=== PATIENT | female | born 1960 | race Caucasian/White ===

== ENCOUNTER 2018-09-30 09:20 | Day surgery (SDC) | payer OTHER ==
[2018-09-30] MEDS ORDERED: PROPOFOL 20 ML (11:07)
[2018-09-30] MEDS ORDERED: LIDOCAINE 2% (SDV) 5 ML INJ (11:07)
[2018-09-30] MEDS ORDERED: FENTAnyl 50 MCG/ML VIAL (11:07)
[2018-09-30] MEDS ORDERED: MIDAZOLAM 1 MG/ML 2 ML INJ (11:07)
[2018-09-30] MEDS ORDERED: PROPOFOL 40 ML (11:42)
== END 2018-09-30 13:47 | disposition home or self-care (01) ==
LOC: GIL 09:20
DX: Z12.11 Encounter for screening for malignant neoplasm of colon (principal); K57.30 Diverticulosis of large intestine without perforation or abscess without bleeding; K64.4 Residual hemorrhoidal skin tags; I10 Essential (primary) hypertension; F17.200 Nicotine dependence, unspecified, uncomplicated
CPT/HCPCS: 45378